=== PATIENT | female | born 1945 | race Caucasian/White ===

== ENCOUNTER → 2016-12-04 | Outpatient (CLI) | payer OTHER, MEDICARE ==
--- NOTE | 2016-12-04 16:00 | US ---
Bilateral Duplex Carotid Sonography Clinical Indications: 71-year-old female with dyspnea 6 weeks ago, and a history of right carotid at herosclerosis. Rule out hemodynamically significant stenosis. ICD 10 Diagnostic Code: I65.21. Technique: The cervical portions of the carotid and vertebral arteries were imaged and interrogated by color and pulsed Doppler. Spectral analysis was performed. Cine clips are stored on PACS. Comparison Study: CT scan of the brain and cervical spine, dated April 09, 2012. Findings: Right Carotid Artery: The common carotid artery, bifurcation, and origin of the internal and externa l carotid artery are well imaged. Doppler velocity estimates and color Doppler spectra are normal, w ith no sonographic evidence of a flow-limiting stenosis. There is some minimal echogenic atherosclero tic calcific plaque in the origin of the proximal right internal carotid artery. The peak systolic ve locity in the internal carotid artery is normal, however, measuring 67 cm/sec with a peak diastolic v elocity of 34 cm/sec. The ICA to CCA systolic and diastolic ratios are normal. Left Carotid Artery: The common carotid artery, bifurcation, and origin of the internal and external carotid artery are well imaged. Doppler velocity estimates and color Doppler spectra are normal, wi th no sonographic evidence of a flow-limiting stenosis. The peak systolic velocity in the internal ca rotid artery is 66 cm/sec, with a peak diastolic velocity of 27 cm/sec. The ICA to CCA systolic and d iastolic ratios are normal. The ICA [id number]-mi-itru systolic ratio is normal. There is some tortuosity of the [id number] left internal carotid artery. Vertebral Arteries: Antegrade flow is shown by pulsed Doppler of each vertebral artery. The peak sys tolic velocity in the right vertebral artery is 59 cm/sec, and in the left vertebral artery is 42 cm/ sec. Impression: 1. Minimal atherosclerotic plaque involving the proximal internal carotid artery; however, there is n o sonographic evidence of a flow-limiting carotid stenosis. 2. Patent, antegrade vertebral arteries. Measurement of carotid stenosis is based on velocity parameters that correlate the residual internal carotid diameter with [place] Symptomatic Carotid Endarterectomy Trial (NASCET) based stenosis levels.
== END ==
LOC: FIMAGING 13:16
PROVIDERS: ATTEND Internal Medicine
DX: I65.23 Occlusion and stenosis of bilateral carotid arteries (principal); R06.00 Dyspnea, unspecified

== ENCOUNTER → 2017-01-28 | Outpatient (CLI) | payer OTHER, MEDICARE | LOC: BMCIMAGING 13:36 | PROVIDERS: ATTEND Internal Medicine | DX: J34.89 Other specified disorders of nose and nasal sinuses (principal) ==

== ENCOUNTER 2017-02-04 07:34 | Day surgery (SDC) | payer OTHER, MEDICARE ==
[2017-02-04] MEDS ORDERED: LIDOCAINE 1% 2 ML INJ ONE (08:14)
[2017-02-04] MEDS ORDERED: LIDOCAINE 1% 2 ML INJ ID PRN (08:35)
[2017-02-04] MEDS ORDERED: LR 1,000 ML IV SCH (09:00)
[2017-02-04] MEDS ORDERED: PROPOFOL 200 MG/20 ML VIAL ONE (09:06)
[2017-02-04] MEDS ORDERED: MIDAZOLAM 2 MG/2 ML VIAL ONE (09:06)
[2017-02-04] MEDS ORDERED: LIDOCAINE 2% 5 ML SDV ONE (09:40)
[2017-02-04] MEDS ORDERED: epHEDrine SULFATE 10 MG/ML SYR ONE (09:40)
--- NOTE | 2017-02-04 10:29 | GPN ---
[f rep st] PROCEDURE NOTE PROCEDURE: Esophagogastroduodenoscopy and colonoscopy. INDICATION: 1. Personal history of greater than 1 cm adenomatous polyp removed from the right colon in piecemea l in January 2016. 2. Anorexia, weight loss for the upper endoscopy. PREOPERATIVE DIAGNOSIS: Rule-out residual polyp and rule-out peptic ulcer disease POSTOPERATIVE DIAGNOSIS: 1. Mild gastritis on upper endoscopy; otherwise normal. 2. Previous polypectomy site looks good, status post biopsy to make sure there is no residual tissu e. 3. A 2 mm ascending colon polyp removed in total by cold biopsy. 4. A 3 mm descending colon polyp removed in total by cold biopsy in piecemeal fashion. INFORMED CONSENT: I did have a discussion with the patient regarding the procedure, alternatives, b enefits, and risks, including bleeding, perforation, infection, and risk of medication. Informed co nsent was signed and witnessed. COMPLICATIONS: None immediate. MEDICATIONS: MAC by Dr. Quintana. DESCRIPTION OF PROCEDURE: After adequate sedation and with the patient in left lateral decubitus po sition, the forward-viewing upper endoscope was introduced into the oropharynx and advanced under di rect visualization down the esophagus. The esophageal mucosa was normal. The endoscope was then ad vanced in the stomach; there was mild antral gastritis with erythema and some friability and granula rity. The pylorus was normal. The duodenal bulb and sweep were normal. The endoscope was withdraw n back into the stomach and biopsies taken from the antrum for histology. The endoscope had retrofl ex, and photographs were obtained of the upper stomach. The endoscope was then completely withdrawn , confirming the above findings. The patient tolerated the procedure well was repositioned for colo noscopy. For colonoscopy, patient remained in left lateral decubitus position. A visual and digital anorecta l examination was performed. The video colonoscope was inserted via the rectum and advanced under v isualization to the cecum, identified by the ileocecal valve, confluence of taeniae, and appendiceal orifice. Retroflex examination was performed in the cecum. The previous area of polypectomy site was well seen in retroflex. I un-retroflexed and tried to view it in forward viewing; it was not as well seen in this attempt. I did see a 2 mm polyp in the ascending colon that was removed in total by cold biopsy. I then advanced the scope back into the cecum, and on retroflexion took biopsies o f the previous polypectomy site. I un-retroflexed and then took some biopsies in forward viewing as well. Upon slow withdrawal of the instrument, careful attention was paid to mucosal detail. The p rep was good. There was a 3 mm polyp in the descending colon that was removed in total by cold biop sy in piecemeal fashion. Retroflex examination was performed in the rectum. The endoscope was then advanced back to the cecum, and air was withdrawn. The endoscope was completely withdrawn confirmi ng the above findings. The patient tolerated the procedure well and was transferred to the recovery room in satisfactory condition. IMPRESSION: 1. Normal esophagus. 2. Mild antral gastritis, status post biopsy. 3. Normal duodenum. 4. Previous polypectomy site looks good, status post biopsy to make sure there is no residual tissu e. 5. A 2 mm ascending colon polyp removed in total by cold biopsy. 6. A 3 mm descending colon polyp removed in total by cold biopsy in piecemeal fashion. RECOMMENDATIONS: 1. Follow up pathology. 2. Start PPI for gastritis and anorexia to see if it improves. If she has no significant improveme nt after 1 month, it is unlikely to help and you can decrease it or stop it entirely. Her inflammat ion should have healed up with 1 month therapy of PPI. I would use a PPI as per formulary half an h our to an hour before breakfast. 3. Follow up pathology of the colon. If the residual polyp site has no true adenomatous tissue, th en the next colonoscopy would be in 3 years. 4. Resume previous diet. 5. Follow up with primary care physician as scheduled. Thank you for allowing me to participate in this patient's health care. Do not hesitate to call me with questions. Sincerely, /[id number]/MODL
--- NOTE | 2017-02-04 11:23 | GPN ---
[f rep st] PROCEDURE NOTE Dr. Rose just did some dictations on Carin Nathan, but he asked to be sent to [facility], and this is her previous primary care physician. He would like the EGD and colonoscopy reports to be se nt to Dania Viveros. If you can change that on this patient from sending it to [facility]en to Jodie Viveros. /[id number]/MODL
== END 2017-02-04 11:00 | disposition home or self-care (01) ==
LOC: FSGY 07:34
PROVIDERS: ATTEND Internal Medicine Gastroenterology
PROC: 0DBM8ZX Excision of Descending Colon, Via Natural or Artificial Opening Endoscopic, Diagnostic (ICD-10-PCS; principal; 2017-02-04 08:45)
PROC: 0DB68ZX Excision of Stomach, Via Natural or Artificial Opening Endoscopic, Diagnostic (ICD-10-PCS; principal; 2017-02-04 08:45)
PROC: 0DBK8ZX Excision of Ascending Colon, Via Natural or Artificial Opening Endoscopic, Diagnostic (ICD-10-PCS; principal; 2017-02-04 08:45)
DX: K29.50 Unspecified chronic gastritis without bleeding (principal); D12.2 Benign neoplasm of ascending colon; D12.4 Benign neoplasm of descending colon; R63.4 Abnormal weight loss; R63.0 Anorexia; Z86.010 Personal history of colon polyps; F32.9 Major depressive disorder, single episode, unspecified; F41.9 Anxiety disorder, unspecified; I71.2 Thoracic aortic aneurysm, without rupture
CPT/HCPCS: J2250; J2704

== ENCOUNTER → 2017-04-27 | Outpatient (CLI) | payer OTHER, MEDICARE | LOC: FIMAGING 12:01 | PROVIDERS: ATTEND Internal Medicine | DX: R91.8 Other nonspecific abnormal finding of lung field (principal); I71.2 Thoracic aortic aneurysm, without rupture ==

== ENCOUNTER 2017-09-30 14:24 | Inpatient (IN) | payer OTHER, MEDICARE ==
--- NOTE | 2017-09-30 14:49 | EDPHY ---
H & P - Medical/Surgical History Hx Diabetes: Yes - Social History Smoking Status: Never smoked Time Seen by Provider: 09/30/17 14:27 HPI/ROS: CHIEF COMPLAINT: M1, suicidal statements, gravely disabled HISTORY OF PRESENT ILLNESS: 71-year-old female arrives via ambulance accompanied by police. Information obtained by police matron and M1 hold this at the patient went to her dentist office and while there made suicidal statements, stated that she "wanted to be with her dogs and ", was not using. It was believed by police that she was suicidal, threat to herself and gravely disabled. In speaking with the patient, she denies these statements, states that she is not suicidal. PRIMARY CARE PROVIDER: REVIEW OF SYSTEMS: A ten point review of systems was performed and is negative with the exception of the items mentioned in the HPI PAST MEDICAL & SURGICAL HISTORY: No pertinent medical or surgical history SOCIAL HISTORY: denies alcohol or drug use PHYSICAL EXAM (Prior to examination, patient consented to physical exam, hands were washed and my usual and customary physical exam procedures followed) 1) GENERAL: Well-developed, well-nourished, alert and oriented. Appears anxious , she is pacing 2) HEAD: Normocephalic, atraumatic 3) HEENT: Pupils equal, round, reactive to light bilaterally. Sclera anicteric. 4) NECK: Full range of motion, no meningeal signs. 5) LUNGS: Clear auscultation bilaterally, no wheezes, no rhonchi, no retractions. 6) HEART: Regular rate and rhythm, no murmur, no heave, no gallop. 7) ABDOMEN: No guarding, no rebound, no focal tenderness,, 8) MUSCULOSKELETAL: Moving all extremities, no focal areas of tenderness, no obvious trauma. No peripheral edema or discoloration. 9) BACK: no step-off, no obvious trauma, no visual or palpable abnormality. 10) SKIN: No rash, no petechiae. 11) Psychiatric: Patient is oriented X 3, there is no agitation. DIFFERENTIAL DIAGNOSIS: in no particular order including but not limited to suicidal ideation, homicidal ideation, dementia (Grabiel,Sharona Nancy) Constitutional: Initial Vital Signs Temperature (C) 36.8 C 09/30/17 14:45 Heart Rate 68 09/30/17 14:45 Respiratory Rate 18 09/30/17 14:45 Blood Pressure 115/83 H 09/30/17 14:45 O2 Sat (%) 94 09/30/17 14:45 O2 Delivery Mode Room Air Allergies/Adverse Reactions: No Known Allergies Allergy (Unverified 04/09/12 16:30) Home Medications: Medication Instructions Recorded Herbals/Supplements -Info Only 01/04/17 Medical Decision Making Procedures: 5:00 p.m.: Care turned over to Dr. Harding awaiting mental health evaluation. Patient is calm cooperative (Sharona Spain) ED Course/Re-evaluation: 2:47 p.m.: Patient is calm cooperative at this time. I have reviewed her M1 report placed by police department. Will obtain diagnostic studies and speak with mental health exterminator termite 5:00 p.m.: Care of patient under supervision of secondary supervising physician Dr Harding with whom I discussed care . Care turned over to Dr. Harding awaiting mental health evaluation. Patient is calm cooperative (Sharona Spain) 9:30 p.m.-this patient has been seen by mental health. She has been accepted to [address] [place] [address] Wilder. 9:45 p.m.-discussed with Dr. Wilder, concern for dehydration given that the patient is not eating much. I spoke with the patient's nurse, who confirms patient has been drinking plenty of fluids while she has been in the emergency department. Patient was encouraged to drink even more fluids. For now we will place an IV. Urinalysis ordered. (Rhianna Harding) Other Provider: 2300 care assumed by me from Dr. Harding pending placement. 0700 patient signed out to Dr. Gonzalez pending placement. No issues during my care this patient overnight. (López Ruiz) - Data Points Laboratory Results: Laboratory Results 09/30/17 15:15 09/30/17 15:15 09/30/17 21:50 Urine Color YELLOW Urine Appearance CLEAR Urine pH 5.0 (5.0-7.5) Ur Specific [place] 1.025 (1.002-1.030) Urine Protein NEGATIVE (NEGATIVE) Urine Ketones TRACE H (NEGATIVE) Urine Blood NEGATIVE (NEGATIVE) Urine Nitrate NEGATIVE (NEGATIVE) Urine Bilirubin NEGATIVE (NEGATIVE) Urine Urobilinogen 2.0 EU H EU (0.2-1.0) Ur Leukocyte Esterase NEGATIVE (NEGATIVE) Urine Glucose NEGATIVE (NEGATIVE) Medications Given: Discontinued Medications Sodium Chloride (Ns) 1,000 mls @ 0 mls/hr IV ONCE ONE; Wide Open PRN Reason: Protocol Stop: 09/30/17 21:38 Last Admin: 09/30/17 21:56 Dose: Not Given Ibuprofen (Motrin) 600 mg PO EDNOW ONE Stop: 10/01/17 06:14 Last Admin: 10/01/17 06:17 Dose: 600 mg Lorazepam (Ativan) 1 mg PO EDNOW ONE Stop: 09/30/17 20:25 Last Admin: 09/30/17 20:25 Dose: 1 mg Departure - Departure Clinical Impression: Suicidal ideation, Gravely disabled Condition: Fair Referrals: NONE *PRIMARY CARE P,. [Primary Care Provider] - As per Instructions
[2017-09-30 15:27] LABS: % IMMATURE GRANULYOCYTES 0.3 % (0.0-1.1); ABSOLUTE IMMATURE GRANULOCYTES 0.02 10^3/uL (0.00-0.10); ADD DIFF? NO; ADD MORPH? NO; ADD SCAN? NO; ATYPICAL LYMPHOCYTE FLAG 0 (0-99); FRAGMENT RBC FLAG 0 (0-99); HEMATOCRIT 37.4 % (38.0-47.0); LEFT SHIFT FLG 0 (0-99); LIPEMIA HEMOLYSIS FLAG 90 (0-99); MEAN CELL HEMOGLOBIN CONCENTR. 34.8 g/dL (32.4-36.7); MEAN CELL VOLUME 92.1 fL (81.5-99.8); MEAN PLATELET VOLUME 8.9 fL (8.7-11.7); PLATELET CLUMPS FLAG 30 (0-99); PLATELET COUNT 281 10^3/uL (150-400); RED BLOOD CELL COUNT 4.06 10^6/uL (4.18-5.33); RED CELL DISTRIBUTION WIDTH 13.2 % (11.5-15.2)
[2017-09-30 15:39] LABS: ANION GAP 11 mEq/L (8-16); CALCIUM 9.7 mg/dL (8.5-10.4); CARBON DIOXIDE 27 mEq/l (22-31); CHLORIDE 103 mEq/L (97-110); CREATININE 0.6 mg/dL (0.6-1.0); ETHANOL SERUM < 10 mg/dL (0-10); GLOMERULAR FILTRATION RATE > 60; GLUCOSE 92 mg/dL (70-100); POTASSIUM 4.3 mEq/L (3.5-5.2); SALICYLATE < 1.0 mg/dL (2.0-20.0); SODIUM 141 mEq/L (134-144)
[2017-09-30] MEDS ORDERED: LORazepam 1 MG TAB PO ONE (20:24)
[2017-09-30] MEDS ORDERED: LORazepam 1 MG TAB ONE (20:24)
[2017-09-30] MEDS ORDERED: NS 1,000 ML IV ONE (21:37)
[2017-09-30 22:18] LABS: COLOR YELLOW; LEUKOCYTE ESTERASE,URINE NEGATIVE (NEGATIVE); NITRITE,URINE NEGATIVE (NEGATIVE)
--- NOTE | 2017-09-30 22:25 | CPEKG ---
Heart Rate: 54 RR Interval: 1111 P-R Interval: 148 QRSD Interval: 80 QT Interval: 472 QTC Interval: 448 P [place]: 78 QRS [place]: -47 T Wave [place]: -4 EKG Severity - ABNORMAL ECG - EKG Impression: SINUS RHYTHM EKG Impression: LAD, CONSIDER LEFT ANTERIOR FASCICULAR BLOCK EKG Impression: BORDERLINE T ABNORMALITIES, INFERIOR LEADS Electronically Signed By: Rhianna Harding 30-Sep-2017 23:16:09
[2017-10-01] MEDS ORDERED: IBUPROFEN 600 MG TAB PO ONE ×2 (06:11→06:13)
[2017-10-01 10:46] VITALS: BP 118/57; PULSE 70; RESP 12; TEMP 97.9; O2SAT 97
--- NOTE | 2017-10-01 15:47 | BAPA ---
[f rep st] ADMISSION PSYCHIATRIC ASSESSMENT Admission and Discharge Summary IDENTIFICATION: This is a 71-year-old white female who lives with her . 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 She is in outpatient mental health treatment with Dr. Emeka Stafford. She receives primary care with Dr. Glass at [facility]. CHIEF COMPLAINT: "I don't think I need to be here." "I feel like I should eat , but I just can't." HISTORY OF PRESENT ILLNESS: The patient is a limited historian with limited detail of recent events. However, she reports that she lives with her and a dog. She went to a dental appointment for a teeth cleaning yesterday. There, she said some statements about having past depression and hopelessness with severe weight loss, and was taken by police to the emergency department for a psychiatric evaluation. The patient was then placed on an M1 hold due to concern the patient was gravely disabled as she had severe weight loss and appeared to have malnutrition and endorsed depressive symptoms. She was brought to the psychiatric emergency room on the M1 hold due to concern she may or may be a danger to herself and suicidal, or may be gravely disabled with severe depression and not eating. The patient reports that she developed symptoms of anxiety, depression, and trouble sleeping 4-5 years ago and has intermittently taken psychiatric medications for sleep, depression, and anxiety over the past 4-5 years. In 2011 her dog and she had a fall with a leg fracture and a head injury. She reports about a year ago she was notified that she had a borderline elevated hemoglobin A1c. She reported that increased her anxiety, with severe fear that she was overweight and would develop diabetes, which worsened her sleep disturbance, and then she had significant weight loss. She started restricting her food intake due to fear of being overweight and developing diabetes. She reports discomfort in the back of her throat and feeling uncomfortable when trying to eat. She has lower back pain which also interferes with her sleep. She reports that she has a mucus feeling in her throat and has some history of acid reflux. She reports that because of her fear of gaining weight and restricting her food intake, she has lost 50 pounds. She does report that she saw a primary care provider, who did do a medical evaluation to rule out a medical cause contributing to her anorexia. She also had an EGD scope that only showed antral gastritis, and that was done in January 2017. The patient also reports she recently was seen by an ear, nose, and throat doctor, who did not find any type of anatomical abnormality in her throat. This history was confirmed by the patient's . The patient reports that she has intermittently taken multiple antidepressants and sedatives for sleep without clear benefit from her outpatient psychiatrist. She recently was taking Remeron and Ativan. She said she stopped the Remeron a month ago and stopped her Ativan about 2 days prior to admission. She reports both of these medications were ineffective. She also reports that she was referred to [facility] eating disorder program, and she had an intake appointment with them last week. She reports at that appointment that they referred her to another program but could not recall what this was. The patient's on the phone reports that the [facility] eating disorder program referred the patient to the [facility], and the patient has an appointment there a week from today, October 08. The patient denies any history of auditory hallucinations or paranoia. The patient denies any history of purging or excessive exercise to lose weight. She denies any history of sustained elevated energy, sustained elevated mood, sustained hyperactivity, or any history of grandiosity, reckless spending, or reckless behaviors. The patient denies any recent violent thoughts or any recent violent behavior. She denies alcohol or cannabis or illicit drug abuse. She denies any recent self-harm. She does report sometimes she feels depressed. She did report after her dog in 2011 that she had brief thoughts that she did not want to live, but denied any recent thoughts of harming herself. The patient is a poor historian with limited information. PAST PSYCHIATRIC HISTORY: The patient denies any past psychiatric hospitalizations. She denies any history of violence toward others or legal problems. She denies any history of regular alcohol or cannabis or illegal drug abuse or any past substance abuse treatment. She reports that she had depression symptoms and brief thoughts of , along with anxiety and sleep disturbances since 2011 when her dog and she had a fall with a head injury and leg fracture. She denies any recent self-injurious behavior. She reports no benefit from trials of trazodone, Remeron, Zoloft, zolpidem, and lorazepam for symptoms of anxiety, depression, or insomnia. The patient recently saw Dr. Emeka Stafford, an outpatient psychiatrist, in private practice. PAST MEDICAL HISTORY: The patient denies any severe medical problems. However , she endorses possible osteoporosis and takes vitamin D. She also has a history of gastritis, but reports no benefit from antacid medications. She had a history of a fall with a leg injury, as well as a concussion in 2011. The radiology report in the computer system indicated the patient may have had a left frontal anterior brain contusion. The patient reports she recently saw a primary care doctor and the ear, nose, and throat specialists to rule out a medical cause of her anorexia. ALLERGIES: No known drug allergies. MEDICATIONS: The patient was recently taking Ativan 1 mg at bedtime, as well as a vitamin D supplement, fish oil supplements, and a B complex. FAMILY HISTORY: She reports her father abused alcohol. She had an aunt who received ECT treatments for depression. She has an uncle who has diabetes. She reports her father in his 60s of coronary artery disease, and her mother in her 90s of congestive heart failure. She has a sister who is alive and well. SOCIAL HISTORY: She reports she was raised by her parents without abuse or neglect. She reports her father was an alcoholic, but was not violent in the household. She graduated from high school. Did a year of [employer] and worked mostly as a social insurance adviser. She has no children. She has been to her for over 20 years. She has adult stepchildren. She and her live alone with a dog. He continues to work as a teacher. She denies any service. LABS: In January of 2017, the patient's liver function tests, iron tests, lipids , vitamin B12, TSH, and phosphate were all normal. Also in January 2017, she had an EGD, which showed antral gastritis. In March 2012, she had a head CT scan that showed a left anterior frontal contusion following a fall. In January 2016, she had a brain MRI that showed periventricular white matter disease with 1 small vessel lesion in the left temporo-occipital region. In April of 2017, she had a followup chest CT, had a stable pulmonary nodule and a small ascending aortic aneurysm. In the emergency room for this hospitalization, the patient had an EKG which showed bradycardia with a heart rate of 54, QTc interval 448 msec, with left axis deviation. Her urine tox screen was positive for benzodiazepines only. Her urine tox screen was negative for other potential drugs of abuse. Her salicylate, alcohol, and acetaminophen levels were negative. Her urinalysis showed trace ketones consistent with poor food intake. Her sodium was 141, potassium 4.3, creatinine 0.6, glucose 92. White blood cell count 6.9, hemoglobin 13, platelet count 281. Vitals: Blood pressure 118/57, heart rate 70, pulse ox 97% on room air. Afebrile today at 10:45 a.m. Her height is 160cm weight 42.2 kg with BMI 16.5 EXAM: She is an alert white female in no acute distress. She is ambulatory, but walks slowly. She has fair eye contact with a very restricted affect. Her speech is soft, with a few words. She appears to be extremely thin and appears to have malnutrition. Her speech is soft, with few words. Her thoughts are briefly organized with poverty of information, poverty of content. She denies thoughts of suicide. She denies thoughts to hurt others. She denies auditory hallucinations. She scored 27/30 on the [employer] exam. She missed 2 on the second step of the mathematics question, and she got 4 out of 5 on delayed recall of 5 words. Her memory of the story questions was intact. Her clock drawing was intact, and she had full orientation to date, time and location. The patient had impaired insight and poor judgment regarding her malnutrition and difficulty eating. ASSESSMENT: 1. Anorexia nervosa with a BMI 16.5 2. 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 3. Insomnia. 4. History of anxiety, depression, and sleep disorders secondary to TBI (left anterior frontal contusion) in 2011 5. Bradycardia likely due to malnutrition 6. History of osteoporosis with lower back pain 7. History of esophageal reflux disease or gastritis. ASSESSMENT: The overall assessment is the patient had depression, anxiety, and sleep disturbance symptoms since 2011 when one of her dogs and she had a fall with a leg fracture and TBI. However, she developed anorexia nervosa symptoms with severe weight loss and malnutrition starting about a year ago after being told that she was overweight and had a borderline elevated HgbA1c. She has had medical workup with a primary care provider and an ears, nose, and throat doctor per her report and her 's report to rule out a medical condition contributing to her anorexia. Her lower back pain may be contributing to her sleep disturbance. The patient reports limited or no benefit from multiple medications used for chronic sleep disturbance. The patient appears to have some mild cognitive slowing, probably secondary to malnutrition. The patient is unlikely to benefit from inpatient psychiatric hospitalization as we do not have a longer-term residential eating disorder program here and were are unable to place a feeding tube for forced refeeding or monitor for refeeding syndrome. The patient's electrolytes appear normal, and the patient can receive daily support from her to get the followup treatment at an intensive eating disorders program as an outpatient. PLAN: 1. The patient was admitted on M1 hold. The patient does not appear to be a danger to herself or others, other than having a risk of medical deterioration from anorexia nervosa. Therefore, will discharge the patient today with her . He will take her to an intake appointment at [facility]. I discussed with the patient and her that the patient should be taken to a medical emergency room if she has any deterioration in her strength or any episodes of syncope. 2. Provided education with patient and regarding the fact that psychiatric medications are unlikely to be beneficial for depression, anxiety, or sleep disturbance if the patient is suffering malnutrition. Discussed that lorazepam can cause withdrawal and stop suddenly. Will order a lorazepam taper of 0.5 mg by mouth at bedtime for 1 week and then stop. 3. The patient reports some of her sleep disturbances are related to chronic back pain. She may or may not have some mild osteoporotic changes in her lower back. The patient is agreeable to try gabapentin 100 mg or 200 mg by mouth at bedtime for back pain and sleep disturbance. 4. I left a message with the patient's outpatient psychiatrist, Dr. Emeka Stafford, notifying him that the patient was here for an evaluation and would be following up in an eating disorders program after discharge. 5. I reviewed with the patient and on the phone, that the patient should have a primary care followup to assess for further medical changes or physical changes from malnutrition and to rule out other medical conditions that may be contributing to her anorexia. 6. The patient is on [id number] vitamin D, omega-3 fatty acids and a vitamin B complex. She can continue these medications after discharge. 7. If the patient has medical followup prior to [facility], the patient probably should have a repeat phosphorus, as well as a repeat TSH. 8. The patient signed a release of information for [facility], primary care provider Dr. Glass, and Emeka Stafford, psychiatrist, so this evaluation should be faxed over to them after discharge. /[id number]/MODL MTDD
== END 2017-10-01 17:00 | disposition home or self-care (01) | DRG 881 ==
LOC: BBEH 10-01 08:50
PROVIDERS: ADMIT Psychiatry & Neurology Psychiatry; ATTEND Psychiatry & Neurology Psychiatry
DX: F32.9 Major depressive disorder, single episode, unspecified (principal); F50.00 Anorexia nervosa, unspecified; Z68.1 Body mass index [BMI] 19.9 or less, adult; E46 Unspecified protein-calorie malnutrition; G47.00 Insomnia, unspecified; R00.1 Bradycardia, unspecified
CPT/HCPCS: 80305; G0463-PO; G0480

== ENCOUNTER 2017-12-19 12:13 | Emergency (ER) | payer OTHER, MEDICARE ==
[2017-12-19] MEDS ORDERED: FAMOTIDINE 20 MG/NACL 50 ML IV ONE (13:10)
[2017-12-19] MEDS ORDERED: NS 500 ML IV ONE (13:10)
--- NOTE | 2017-12-19 13:18 | EDPHY ---
H & P Time Seen by Provider: 12/19/17 12:54 HPI/ROS: CHIEF COMPLAINT: "My food tastes bad," "eating problem" HISTORY OF PRESENT ILLNESS: The patient is a 72-year-old female with a history of hypothyroidism who presents emergency department with multiple complaints. She states that over the past 2 months she has had progressive difficulty with swallowing. She describes it her food tastes "sick. "She also states that she has difficulty keeping food stay down. She has pain when she swallows. This morning she was able to take a small amount of aches but nothing more solid. She also has difficulty swallowing water. She describes significant weight loss over the past 2 months. She also describes hair loss. She has no abdominal pain. No chest pain or shortness of breath. No fevers or chills. Patient states she recently switched physicians because her previous physician was not "taking her seriously. " REVIEW OF SYSTEMS: My complete review of systems is negative except as mentioned in the HPI. Past Medical/Surgical History: Includes hypothyroidism Past surgical history: Includes orthopedic surgery, hemorrhoidectomy Social history: The patient is . She does not smoke. Smoking Status: Never smoked Physical Exam: GENERAL: No acute distress, alert. Cachectic. HEENT: Eyes normal to inspection, normal pharynx, no signs of dehydration. Normal appearing. NECK: [No thyromegaly, no lymphadenopathy, supple. RESPIRATORY: Clear to auscultation bilaterally, no rales, rhonchi or wheezing. CVS: Regular rate and rhythm, no rubs, murmurs, or gallops. ABDOMEN: Soft, nontender, nondistended, no organomegaly. BACK: Normal to inspection, no CVA tenderness. SKIN: Normal color, no rash, warm, dry. No pallor. EXTREMITIES: No pedal edema, no calf tenderness, no Homans sign or cords, no joint swelling. NEURO/PSYCH: Alert and oriented, normal mood and affect, normal motor sensory exam. No obvious cranial nerve deficit. Constitutional: Initial Vital Signs Heart Rate 76 12/19/17 12:19 Respiratory Rate 16 12/19/17 12:19 O2 Sat (%) 97 12/19/17 12:19 O2 Delivery Mode Room Air Allergies/Adverse Reactions: No Known Allergies Allergy (Verified 12/19/17 12:17) Home Medications: Medication Instructions Recorded Levothyroxine 12/19/17 Medical Decision Making - Diagnostics Imaging Results: Imaging Impressions Esophagram Cervical 12/19/17 13:11 Impression: 1. Normal limited esophagram without evidence of stricture or food impaction. Findings discussed with Sylvia Kim M.D. at 15:31 hour, 12/19/2017. ED Course/Re-evaluation: In the emergency department I discussed possible etiologies with the patient and her . I answered all her questions. IV was placed. Laboratory studies were obtained. Patient was given normal saline 500 mL IV because she states she has been having trouble eating and drinking. A barium swallow was ordered. Patient was anxious while in the emergency department. She was given Ativan 0.25 mg IV. Reviewed the patient's laboratory studies. CBC is normal. Patient's chemistry panel is unremarkable. The patient had a mildly elevated total bilirubin at 1.7. TSH is unremarkable. Troponin is negative. EKG: Sinus rhythm at 66. Left anterior fascicular block. Upper GI swallow study: Please refer the dictated report by Dr. Izaguirre. The patient had poor effort on the study. However there is no obvious stricture or abnormality. I discussed the results with the patient and her . I answered all her questions. She will follow up with a sawmill hand. She also follow up with her primary care physician. She was given warnings prior to leaving. Differential Diagnosis: My differential includes but is not limited to dysphagia, GERD, peptic ulcer disease, mass, malignancy, achalasia - Data Points Laboratory Results: Laboratory Results 12/19/17 13:20 12/19/17 13:20 12/19/17 12/19/17 12/19/17 15:30 13:30 13:20 WBC RBC Hgb Hct MCV MCH MCHC RDW Plt Count MPV Neut % (Auto) Lymph % (Auto) [place] % (Auto) Eos % (Auto) Baso % (Auto) Nucleat RBC Rel Count Absolute Neuts (auto) Absolute Lymphs (auto) Absolute Monos (auto) Absolute Eos (auto) Absolute Basos (auto) Absolute Nucleated RBC Immature Gran % Immature Gran # PT INR APTT Sodium 141 mEq/L mEq/L (135-145) Potassium 4.2 mEq/L mEq/L (3.5-5.2) Chloride 104 mEq/L mEq/L (97-110) Carbon Dioxide 23 mEq/l mEq/l (22-31) Anion Gap 14 mEq/L mEq/L (8-16) BUN 22 mg/dL mg/dL (7-23) Creatinine 0.7 mg/dL mg/dL (0.6-1.0) Estimated GFR > 60 Glucose 96 mg/dL mg/dL (70-100) Calcium 10.3 mg/dL mg/dL (8.5-10.4) Total Bilirubin 1.7 mg/dL H mg/dL (0.1-1.4) Conjugated Bilirubin 0.4 mg/dL mg/dL (0.0-0.5) Unconjugated Bilirubin 1.3 mg/dL H mg/dL (0.0-1.1) AST 22 IU/L IU/L (14-46) ALT 28 IU/L IU/L (9-52) Alkaline Phosphatase 56 IU/L IU/L (38-126) Troponin I < 0.012 ng/mL ng/mL (0.000-0.034) Total Protein 6.8 g/dL g/dL (6.3-8.2) Albumin 4.2 g/dL g/dL (3.5-5.0) Lipase 166 IU/L IU/L (23-300) TSH 2.780 uIU/mL uIU/mL (0.465-4.680) Urine Color FRANK Urine Appearance HAZY Urine pH 5.0 (5.0-7.5) Ur Specific [place] 1.026 (1.002-1.030) Urine Protein 1+ H (NEGATIVE) Urine Ketones TRACE H (NEGATIVE) Urine Blood NEGATIVE (NEGATIVE) Urine Nitrate NEGATIVE (NEGATIVE) Urine Bilirubin NEGATIVE (NEGATIVE) Urine Urobilinogen 2.0 EU H EU (0.2-1.0) Ur Leukocyte Esterase NEGATIVE (NEGATIVE) Urine RBC 3-5 /hpf H /hpf (0-3) Urine WBC 1-3 /hpf /hpf (0-3) Ur Epithelial Cells TRACE /lpf /lpf (NONE-1+) Hyaline Casts 1-5 /lpf /lpf (0-1) Urine Mucus 4+ /lpf H /lpf (NONE-1+) Urine Glucose NEGATIVE (NEGATIVE) 12/19/17 12/19/17 13:20 13:20 WBC 5.10 10^3/uL 10^3/uL (3.80-9.50) RBC 4.23 10^6/uL 10^6/uL (4.18-5.33) Hgb 13.3 g/dL g/dL (12.6-16.3) Hct 38.6 % % (38.0-47.0) MCV 91.3 fL fL (81.5-99.8) MCH 31.4 pg pg (27.9-34.1) MCHC 34.5 g/dL g/dL (32.4-36.7) RDW 12.6 % % (11.5-15.2) Plt Count 311 10^3/uL 10^3/uL (150-400) MPV 8.6 fL L fL (8.7-11.7) Neut % (Auto) 58.6 % % (39.3-74.2) Lymph % (Auto) 36.3 % % (15.0-45.0) [place] % (Auto) 3.7 % L % (4.5-13.0) Eos % (Auto) 0.0 % L % (0.6-7.6) Baso % (Auto) 1.2 % % (0.3-1.7) Nucleat RBC Rel Count 0.0 % % (0.0-0.2) Absolute Neuts (auto) 2.99 10^3/uL 10^3/uL (1.70-6.50) Absolute Lymphs (auto) 1.85 10^3/uL 10^3/uL (1.00-3.00) Absolute Monos (auto) 0.19 10^3/uL L 10^3/uL (0.30-0.80) Absolute Eos (auto) 0.00 10^3/uL L 10^3/uL (0.03-0.40) Absolute Basos (auto) 0.06 10^3/uL 10^3/uL (0.02-0.10) Absolute Nucleated RBC 0.00 10^3/uL 10^3/uL (0-0.01) Immature Gran % 0.2 % % (0.0-1.1) Immature Gran # 0.01 10^3/uL 10^3/uL (0.00-0.10) PT 13.7 SEC SEC (12.0-15.0) INR 1.03 (0.83-1.16) APTT 27.4 SEC SEC (23.0-38.0) Sodium Potassium Chloride Carbon Dioxide Anion Gap BUN Creatinine Estimated GFR Glucose Calcium Total Bilirubin Conjugated Bilirubin Unconjugated Bilirubin AST ALT Alkaline Phosphatase Troponin I Total Protein Albumin Lipase TSH Urine Color Urine Appearance Urine pH Ur Specific [place] Urine Protein Urine Ketones Urine Blood Urine Nitrate Urine Bilirubin Urine Urobilinogen Ur Leukocyte Esterase Urine RBC Urine WBC Ur Epithelial Cells Hyaline Casts Urine Mucus Urine Glucose Medications Given: Discontinued Medications Sodium Chloride (Ns) 500 mls @ 0 mls/hr IV EDNOW ONE; Wide Open PRN Reason: Protocol Stop: 12/19/17 13:11 Last Admin: 12/19/17 13:21 Dose: 500 mls Famotidine/Sodium Chloride (Pepcid 20 Mg (Premix)) 50 mls @ 200 mls/hr IV EDNOW ONE Stop: 12/19/17 13:24 Last Admin: 12/19/17 13:20 Dose: 50 mls Lorazepam (Ativan Injection) 0.25 mg IVP EDNOW ONE Stop: 12/19/17 13:56 Last Admin: 12/19/17 14:36 Dose: 0.25 mg Departure - Departure Disposition: [facility] Inpatient Acute Clinical Impression: Dysphagia Condition: Good Instructions: Lorazepam (By mouth) Additional Instructions: Return with increasing abdominal discomfort, difficulty swallowing, weight loss or any other concerns. You need close follow-up with the sawmill hand. You need to call to make the appointment. Call your primary care physician and informed him of the plan. Referrals: Viji Glass MD [Primary Care Provider] - 2-3 days, call for appt. Can Rhoades MD, FACG [Medical Doctor] - 5-7 days, call for appt.
[2017-12-19 13:26] LABS: PLATELET COUNT 311 10^3/uL (150-400)
[2017-12-19 13:35] LABS: INR 1.03 (0.83-1.16); PROTIME(PATIENT) 13.7 SEC (12.0-15.0)
[2017-12-19] MEDS ORDERED: LORazepam 2 MG/ML INJ ONE (13:51)
[2017-12-19] MEDS ORDERED: LORazepam 2 MG/ML INJ IVP ONE (13:55)
[2017-12-19 14:41] VITALS: TEMP 97.9
--- NOTE | 2017-12-19 14:42 | CPEKG ---
Heart Rate: 66 RR Interval: 909 P-R Interval: 172 QRSD Interval: 90 QT Interval: 440 QTC Interval: 461 P [place]: 0 QRS [place]: -58 T Wave [place]: 52 EKG Severity - ABNORMAL ECG - EKG Impression: SINUS RHYTHM EKG Impression: LEFT ANTERIOR FASCICULAR BLOCK Electronically Signed By: Sylvia Kim 19-Dec-2017 20:36:15
[2017-12-19 15:40] VITALS: BP 132/50; PULSE 81; RESP 16; O2SAT 99
[2017-12-19] MEDS ORDERED: LORAZEPAM 1 MG PREPACK#4 BTL TAKEHOME ONE (16:36)
== END 2017-12-19 16:54 | disposition home or self-care (01) ==
DX: R13.10 Dysphagia, unspecified (principal); E86.9 Volume depletion, unspecified
CPT/HCPCS: 71046; 74220; 93005; 96365; 96375; 99285; J2060

== ENCOUNTER → 2019-02-17 | Outpatient (CLI) | payer OTHER, MEDICARE | LOC: BMCIMAGING 08:32 | PROVIDERS: ATTEND Family Medicine | DX: M25.522 Pain in left elbow (principal) ==